=== PATIENT | female | born 1990 ===

== ENCOUNTER 2022-01-17 00:50 | Emergency (ER) | payer OTHER ==
[2022-01-17 01:27] LABS: BASOPHIL 0.5 % (0-2); EOSINOPHIL 2.1 % (0-5); HCT 40.4 % (37.0-47.0); HGB 13.3 g/dl (12.5-16.0); LYMPHOCYTE 43.1 % (15-48); MCH 28.5 pg (25.0-31.0); MCHC 32.9 g/dL (32.0-36.0); MCV 86.7 fL (78.0-100.0); MONOCYTE 7.1 % (0-12); MPV 9.3 fL (6.0-9.5); NRBC 0; PLT 256 K/uL (150-400); RBC 4.66 M/uL (4.20-5.40); RDW 12.6 % (11.5-14.0); WBC 8.7 K/uL (4.0-10.5)
[2022-01-17 01:43] LABS: BILIRUBIN NEGATIVE (NEGATIVE); BLOOD NEGATIVE Ery/uL (NEGATIVE); CLARITY CLEAR (CLEAR); COLOR YELLOW (YELLOW); GLUCOSE (U) NORMAL (NORMAL); LEUKOCYTES NEGATIVE Leu/uL (NEGATIVE); NITRITE POSITIVE (NEGATIVE); PROTEIN NEGATIVE (NEGATIVE); UROBILINOGEN 0.2 mg/dL (0.2-1.0); pH 7.5 (5.0-9.0)
[2022-01-17 01:48] LABS: BACTERIA 3+
[2022-01-17 01:49] LABS: AMORPHOUS PHOSPHATE CRYSTALS MODERATE
[2022-01-17 01:53] LABS: ALBUMIN 3.7 g/dL (3.4-5.0); BILIRUBIN - TOTAL 0.2 mg/dL (0.2-1.0); BUN/CREAT RATIO (CALC) 17.3 RATIO; CREATININE 0.52 mg/dL (0.51-0.95); GLOBULIN (CALCULATION) 3.7 g/dL; POTASSIUM 3.7 mmol/L (3.5-5.1); TOTAL PROTEIN 7.4 g/dL (6.4-8.2)
[2022-01-17] MEDS ORDERED: BACTRIM DS TAB1 EACH PO (02:53)
[2022-01-17] MEDS ORDERED: PERCOCET 5-3251 EACH PO (02:54)
[2022-01-17] MEDS ORDERED: ONDANSETRON ODT4 MG PO (02:56)
== END 2022-01-17 03:32 | disposition home or self-care (01) ==
LOC: FER 00:50
PROVIDERS: Internal Medicine
DX: N39.0 Urinary tract infection, site not specified (principal); R10.31 Right lower quadrant pain; Z88.0 Allergy status to penicillin
CPT/HCPCS: 36415; 80053; 81001; 83690; 85025; J0696; J1170; J2405